=== PATIENT | male | born 1975 | race Two or more races ===

== ENCOUNTER 2022-03-30 10:00 | Inpatient (IN) | payer OTHER ==
[2022-05-05] MEDS ORDERED: ULTRACET PO (09:35)
== END 2022-05-05 12:14 | disposition home or self-care (01) | DRG 329 ==
LOC: SURG 04-04 10:00 → O/R 05-02 07:55 → SURG 05-02 10:00
PROVIDERS: ADMIT Colon & Rectal Surgery; ATTEND Colon & Rectal Surgery
PROC: 0DBP4ZZ Excision of Rectum, Percutaneous Endoscopic Approach (ICD-10-PCS; 2022-05-02)
PROC: 0DJD8ZZ Inspection of Lower Intestinal Tract, Via Natural or Artificial Opening Endoscopic (ICD-10-PCS; 2022-05-02)
PROC: 0DTN4ZZ Resection of Sigmoid Colon, Percutaneous Endoscopic Approach (ICD-10-PCS; principal; 2022-05-02 07:00)
DX: K57.32 Diverticulitis of large intestine without perforation or abscess without bleeding (principal); K56.2 Volvulus; K92.1 Melena; Z20.822 Contact with and (suspected) exposure to COVID-19